=== PATIENT | female | born 1960 | race Caucasian/White ===

== ENCOUNTER 2024-06-09 07:29 | Day surgery (SDC) | payer OTHER ==
[~2024-06-09] VITALS: Ht 167.6 cm; Wt 69.9 kg
[2024-06-09] MEDS ORDERED: MIDAZOLAM HCL 5 MG/5 ML VIAL ONE (07:55)
[2024-06-09] MEDS ORDERED: MEPERIDINE 100 MG INJ. 100 MG/ML VIAL ONE (07:55)
[2024-06-09 14:20] VITALS: TEMP 97.6; O2SAT 98
[2024-06-09 16:52] VITALS: BP_SYST 109; PULSE 71; RESP 11
== END 2024-06-09 12:01 | disposition home or self-care (01) ==
LOC: SDS 07:29 → SMU 07:30 → SDS 12:01
PROVIDERS: ATTEND Internal Medicine
DX: Z12.11 Encounter for screening for malignant neoplasm of colon (principal); K63.5 Polyp of colon; K62.1 Rectal polyp; K64.8 Other hemorrhoids; E78.5 Hyperlipidemia, unspecified; Z98.890 Other specified postprocedural states; Z79.899 Other long term (current) drug therapy
CPT/HCPCS: 45380; 45385; 88305; 99152; G0378; J2250; J2175